=== PATIENT | male | born 1975 | race Caucasian/White ===

== ENCOUNTER 2019-11-02 13:20 | Inpatient (IN) ==
[2019-11-02 14:35] LABS: Hematocrit (blood only) 20.2 % (42-52); Hemoglobin 7.2 g/dL (14.0-18.0); Mean Corpuscular Hemoglobin 40.7 pg (25-34); Mean Corpuscular Hgb Conc 35.6 g/dL (32-36); Mean Corpuscular Volume 114.1 fL (80-100); Mean Platelet Volume 9.5 fL (7.4-10.4); Nucleated RBC # (auto) 0.09 K/uL (0-0); Nucleated RBC % (auto) 0.5 %; Platelet Count 185 K/uL (130-400); RDW Coefficient of Variation 15.8 % (11.5-14.5); RDW Standard Deviation 65.1 fL (36.4-46.3); Red Blood Count 1.77 M/uL (4.7-6.1); White Blood Count 19.66 K/uL (4.8-10.8)
[2019-11-02 14:42] LABS: Albumin Level 2.4 gm/dl (3.4-5.0); BUN Creatinine Ratio 25.2 (10-20); Calcium 8.4 mg/dl (8.5-10.1); Creatinine Clr Calc Pharmacy 251.7 ml/min; Est GFR (African American) 139.8; Est GFR (Non-African American) 120.7; Potassium 3.8 mmol/L (3.5-5.1)
[2019-11-02 14:45] LABS: Albumin Globulin Ratio 0.6 (0.9-2); Total Protein 6.4 gm/dl (6.4-8.2)
[2019-11-02 14:46] LABS: Basophilic Stippling 1+; Basophils # (auto) 0.04 K/uL (0-0.2); Basophils % (auto) 0.2 %; Eosinophils # (auto) 0.01 K/uL (0-0.5); Eosinophils % (auto) 0.1 %; Immature Granulocytes # (auto) 0.13 K/uL (0.00-0.02); Immature Granulocytes % (auto) 0.7 %; Lymphocytes # (auto) 1.86 K/uL (1.2-3.4); Lymphocytes % (auto) 9.5 %; Macrocytosis Present; Monocytes # (auto) 1.96 K/uL (0.11-0.59); Neutrophils # (auto) 15.66 K/uL (1.4-6.5); Neutrophils % (auto) 79.5 %; Polychromasia 1+
[2019-11-02] MEDS ORDERED: SODIUM CHLORIDE 0.9% 250 ML IV PRN ×2 (15:31→19:14)
[2019-11-02] MEDS ORDERED: PANTOprazole 80 MG in DEXTROSE 5% 100 ML IV STA (15:35)
--- NOTE | 2019-11-02 15:42 | Emergency Department Note ---
History of Present Illness General Chief complaint: Swelling/Edema to Extremity Stated complaint: LEGS SWOLLEN,BACK PAIN Time Seen by Provider: 11/02/19 15:13 Source: patient Mode of arrival: ambulatory Limitations: no limitations History of Present Illness Provider complaint: Shortness of breath Maximum Pain Intensity: 0 This is a 44-year-old male who presents to the ED with a chief complaint of swelling in the extremities for the past month. He has had increasing swelling in the body for the past week. He has had occasional gross blood in the stools. He has had exertional dyspnea where he can only walk about 10 steps before he has to rest. The patient does have a history of lifelong alcoholism. He states that he has been also spitting up occasionally or vomiting some yellowish-brown substance on occasion. The patient symptoms are moderate. The states that he looks a little yellow in the eyes recently as well. He denies any abdominal pains. He has experienced some back pain on occasion as well. He states that he does not have a doctor. He has not seen one for a long time. He denies any medical problems. Home Medications Home Medications Medication Instructions Recorded Confirmed Type No Known Home Medications 11/02/19 11/02/19 History Allergies Allergy/AdvReac Type Severity Reaction Status Date / Time No Known Allergies Allergy Unverified 11/02/19 16:13 Past Med/Surg History Social History Smoking Status: Never smoker Feels Safe at Home: Yes Review of Systems A total of 10 systems reviewed and were otherwise negative Physical Exam Vital Signs Vital Signs - 24 hr 11/02/19 13:52 Temperature 37.1 C Temperature Source Oral Pulse Rate 97 H Respiratory Rate 22 Respiratory Depth Normal Blood Pressure 104/49 L Blood Pressure Mean 67 Pulse Oximetry 98 Sepsis Recent Fever Within 48 Hours No Sepsis New/Unexplained Change in Mental Status No Sepsis Action Taken by Nursing No Action Required CONSTITUTIONAL/VITAL SIGNS: Reviewed / noted above. GENERAL: Non-toxic in appearance. Obese. INTEGUMENTARY: Warm, dry, and [place]. HEAD: Normocephalic. EYES: without scleral icterus or trauma. ENT/OROPHARYNX: clear and moist. LYMPHADENOPATHY/NECK: Is supple without lymphadenopathy or meningismus. RESPIRATORY: Lungs clear and equal. CARDIOVASCULAR: Regular rate and rhythm. GI/ABDOMEN: Soft and nontender. No organomegaly or pulsatile mass. No rebound or guarding. Normal bowel sounds. EXTREMITIES: Warm and well perfused. Positive edema. BACK: No CVA tenderness. NEUROLOGICAL: Intact without focal deficits. PSYCHIATRIC: normal affect. MUSCULOSKELETAL: Normally developed with good muscle tone. Rectal: Black stools guaiac positive. TRIAGE NURSING DOCUMENTATION REVIEWED. Critical Care Time Critical Care Time: Yes Total Critical Care Time: 40 I have personally spent 40 minutes of critical care time in the direct management of this patient. This includes bedside care, interpretation of diagnostic studies, and testing, discussion with consultants, patient, and family members, and other required patient management activities. This 40 minutes is in excess of all separately billable procedures. Medical Decision Making Differential Diagnosis Differential includes acute coronary syndrome, myocardial infarction, CVA, TIA, anemia, infection, pneumonia, UTI, pyelonephritis, poor nutrition, dehydration, electrolyte disturbance,hypoglycemia. Medical Records Attestation: I reviewed the patient's medical records. Home Medications Current Medication List: was personally reviewed by me Laboratory Data Attestation: I reviewed the patient's lab results. Result diagrams: 11/02/19 14:06 11/02/19 14:06 Lab Results 11/02/19 11/02/19 11/02/19 Range/Units 14:06 14:06 14:06 WBC 19.66 H (4.8-10.8) K/uL RBC 1.77 L (4.7-6.1) M/uL Hgb 7.2 L (14.0-18.0) g/dL Hct 20.2 L* (42-52) % MCV 114.1 H (80-100) fL MCH 40.7 H (25-34) pg MCHC 35.6 (32-36) g/dL RDW Std Deviation 65.1 H (36.4-46.3) fL RDW Coeff of Carlos Manuel 15.8 H (11.5-14.5) % Plt Count 185 (130-400) K/uL MPV 9.5 (7.4-10.4) fL Immature Gran % (Auto) 0.7 % Neut % (Auto) 79.5 % Lymph % (Auto) 9.5 % [place] % (Auto) 10.0 % Eos % (Auto) 0.1 % Baso % (Auto) 0.2 % Neut # (Auto) 15.66 H (1.4-6.5) K/uL Lymph # (Auto) 1.86 (1.2-3.4) K/uL [place] # (Auto) 1.96 H (0.11-0.59) K/uL Eos # (Auto) 0.01 (0-0.5) K/uL Baso # (Auto) 0.04 (0-0.2) K/uL Immature Gran # (Auto) 0.13 H (0.00-0.02) K/uL Absolute Nucleated RBC 0.09 H (0-0) K/uL Nucleated RBC % (auto) 0.5 % Polychromasia 1+ Basophilic Stippling 1+ Macrocytosis Present Sodium 125 L (136-145) mmol/L Potassium 3.8 (3.5-5.1) mmol/L Chloride 89 L (98-107) mmol/L Carbon Dioxide 22 (21-32) mmol/L Anion Gap 14.0 H (3-11) BUN 16 (7-18) mg/dl Creatinine 0.62 (0.6-1.4) mg/dl Est Cr Clr Drug Dosing 251.7 ml/min Est GFR ( Amer) 139.8 Est GFR (Non-Af Amer) 120.7 BUN/Creatinine Ratio 25.2 H (10-20) Glucose 150 H (70-99) mg/dl Calcium 8.4 L (8.5-10.1) mg/dl Total Bilirubin 2.0 H (0.2-1) mg/dl AST 92 H (15-37) U/L ALT 20 (12-78) U/L Alkaline Phosphatase 188 H (45-117) U/L Total Protein 6.4 (6.4-8.2) gm/dl Albumin 2.4 L (3.4-5.0) gm/dl Globulin 4.0 (2.5-4.0) gm/dl Albumin/Globulin Ratio 0.6 L (0.9-2) Lipase 211 (73-393) U/L Ethyl Alcohol mg/dL 72.9 H (0-3) mg/dl Crossmatch 11/02/19 Range/Units 15:31 WBC (4.8-10.8) K/uL RBC (4.7-6.1) M/uL Hgb (14.0-18.0) g/dL Hct (42-52) % MCV (80-100) fL MCH (25-34) pg MCHC (32-36) g/dL RDW Std Deviation (36.4-46.3) fL RDW Coeff of Carlos Manuel (11.5-14.5) % Plt Count (130-400) K/uL MPV (7.4-10.4) fL Immature Gran % (Auto) % Neut % (Auto) % Lymph % (Auto) % [place] % (Auto) % Eos % (Auto) % Baso % (Auto) % Neut # (Auto) (1.4-6.5) K/uL Lymph # (Auto) (1.2-3.4) K/uL [place] # (Auto) (0.11-0.59) K/uL Eos # (Auto) (0-0.5) K/uL Baso # (Auto) (0-0.2) K/uL Immature Gran # (Auto) (0.00-0.02) K/uL Absolute Nucleated RBC (0-0) K/uL Nucleated RBC % (auto) % Polychromasia Basophilic Stippling Macrocytosis Sodium (136-145) mmol/L Potassium (3.5-5.1) mmol/L Chloride (98-107) mmol/L Carbon Dioxide (21-32) mmol/L Anion Gap (3-11) BUN (7-18) mg/dl Creatinine (0.6-1.4) mg/dl Est Cr Clr Drug Dosing ml/min Est GFR ( Amer) Est GFR (Non-Af Amer) BUN/Creatinine Ratio (10-20) Glucose (70-99) mg/dl Calcium (8.5-10.1) mg/dl Total Bilirubin (0.2-1) mg/dl AST (15-37) U/L ALT (12-78) U/L Alkaline Phosphatase (45-117) U/L Total Protein (6.4-8.2) gm/dl Albumin (3.4-5.0) gm/dl Globulin (2.5-4.0) gm/dl Albumin/Globulin Ratio (0.9-2) Lipase (73-393) U/L Ethyl Alcohol mg/dL (0-3) mg/dl Crossmatch See Detail Imaging Data Radiologist's Impression: XR chest 1V portable HISTORY: Shortness of breath. Weakness. COMPARISON: None. FINDINGS: No pneumothorax. No pleural effusions. There are low lung volumes. The cardiac silhouette is mildly enlarged. This may be accentuated by the low lung volumes. No evidence for pulmonary edema. No focal lung consolidations to suggest pneumonia. IMPRESSION: Low lung volumes. Otherwise, no acute process within the chest. ECG Data Attestation: I personally reviewed and interpreted this ECG as follows: Indication: + weakness Rate (beats per minute): 96 Rhythm: + normal sinus ECG Intervals/blocks: + Normal QT-c ECG ST segments: no ST elevation ECG Findings: no PVCs MDM Narrative The patient presents as above with his main complaints being swelling in his body as well as blood in the stools and exertional dyspnea that is been progressively worsening over the past weeks. Significantly worse this past week where he can only walk 10 steps. His physical exam did reveal guaiac positive black stools. His white blood cell count was 19,000. His hemoglobin is 7.2. His sodium is 125. Glucose is 150. Bilirubin is 2. AST is 92. Alkaline phosphatase is 188. Alcohol level 73. The patient is a daily drinker/alco holic. His lipase was negative. EKG showed a normal sinus rhythm at a rate of 96. The patient was treated with IV fluids, IV Protonix bolus and drip as well as typed and crossed for 1 unit of blood. The patient will require further inpatient evaluation and care. I spoke with the hospitalist about the patient. Impression & Plan Acute upper gastrointestinal hemorrhage, Anemia, Acute hyponatremia, Alcoholism Discharge Plan Visit Data Chief Complaint: Swelling/Edema to Extremity Stated Complaint: LEGS SWOLLEN,BACK PAIN ED Provider: Anish Moss Discharge Problem: Acute upper gastrointestinal hemorrhage, Anemia, Acute hyponatremia, Alcoholism Patient Disposition: Being Evaluated by Hospitalist Forms Stand Alone Forms: My [facility] Prescriptions Prescriptions: No Action No Known Home Medications RF: 0 Referrals Referrals: PCP,NO [Primary Care Provider] -
--- NOTE | 2019-11-02 15:50 | XRay Report ---
XR chest 1V portable HISTORY: Shortness of breath. Weakness. COMPARISON: None. FINDINGS: No pneumothorax. No pleural effusions. There are low lung volumes. The cardiac silhouette i s mildly enlarged. This may be accentuated by the low lung volumes. No evidence for pulmonary edema. No focal lung consolidations to suggest pneumonia. IMPRESSION: Low lung volumes. Otherwise, no acute process within the chest. ACT 112: Negative or not required by law. Electronically signed by: Simón Polk M.D. 11/02/2019 3:49 PM
--- NOTE | 2019-11-02 16:08 | History & Physical Report ---
Date of Service November 02, 2019 Assessment & Plan (1) Dizziness: Suspect due to mod-severe anemia. Some of the anemia could be acute blood loss anemia from GI bleeding. I don't have prior CBCs to compare baseline H/H. Will Tx 1 unit PRBCs for symptomatic anemia and continue serial H/H's. (2) Alcoholism: Severe. I am heavily concerned he has full-blown cirrhosis given his lab findings, exam (LE edema, suspected ascites, palmar erythema, etc), etc. Place on thiamine 200mg IV BID. folic acid 1mg IV daily. gabapentin protocol and ativan prn. alcohol withdrawal protocol in place - at high risk of withdrawal. supportive care. telemetry. patient states he wishes to be sober and wants to talk to social work about options. abdominal u/s - check liver, spleen, ascites, etc. (3) Acute upper gastrointestinal hemorrhage: (4) Melena: concerning for upper GI bleeding. if indeed he has cirrhosis this could be variceal in origin. alternatively could have esophagitis, gastritis, and/or PUD. NPO. Transfuse PRBCs. serial H/H's. GI consult for consideration of EGD. PPI drip. Octreotide drip. fortunately BPs are stable. (5) Macrocytic anemia: Check B12, folate, TSH. If the above are normal the macrocytosis could simply be from heavy etoh use and/or liver disease. CBC am. (6) Acute hyponatremia: check serum osm, urine osm, urine Na. clinically is volume overloaded with severe LE edema and suspicion of ascites. following PRBCs will give IV lasix. repeat BMP am. (7) Abnormal LFTs: highly concerning for, at minimum, alcoholic hepatitis. cannot rule out baseline cirrhosis. abdominal u/s requested. check HepB and HepC tests. GI consultation requested with Dr Durant. needs to abstain 100% from etoh. (8) Morbid obesity: BMI 45 check TSH (9) Edema: suspect due to liver disease/cirrhosis. check TSH. check echo, r/o LV/RV dysfunction; r/o diastolic dysfunction. check u/a, r/o significant proteinuria. lasix IV following PRBCs. (10) Folate deficiency: folate level <1. folate 1mg IV daily. (11) Hyperglycemia: check A1c in am; r/o early DM. (12) Tobacco dependence: career guidance counselor to quit (13) Leukocytosis: has mild conjunctivitis on exam. cannot rule out a viral or bacterial infectious process. eye drops. check ua - r/o UTI. cxr w/o obvious pneumonia. alternatively high WBC could be reactive. lastly, if ascites is present on abdominal u/s -- consider diagnostic paracentesis -- r/o SBP (but no symptoms of such). (14) DVT prophylaxis: SCDs only chemical means contraindicated in setting of suspected acute GI bleeding History of Present Illness Chief Complaint: swelling, dyspnea Primary Care Provider: NO PCP 44yo male with morbid obesity and chronic alcohol abuse presents with multiple complaints including progressive dyspnea on exertion for 4-5 months, dizziness/lightheadedness with standing/walking, worsening LE edema and abdominal swelling, weight gain (uncertain amount but perhaps 40 pounds or more), melena stools for 2 weeks and some bright red blood, and back pain for about 1 year. Dyspnea on exertion was initially with walking long distances but now occurs after walking 10 steps. No chest pain. Tobacco use - snuff on daily basis. Alcohol use - 1/5 vodka/daily. Has used etoh since age 18. Has h/o etoh withdrawal but has never needed hospitalization for such. Last drink was just prior to arrival in the ER. Allergies Allergy/AdvReac Type Severity Reaction Status Date / Time No Known Allergies Allergy Unverified 11/02/19 16:13 Home Medications Home Medications Medication Instructions Recorded Confirmed Type No Known Home Medications 11/02/19 11/02/19 History Past Med/Surg History Family History (Updated 11/02/19 @ 16:24 by Micky Mondragon) Mother No pertinent past medical history Father No pertinent past medical history Grandfather (Paternal) Alcoholism Social History (Updated 11/02/19 @ 16:25 by Micky Mondragon) Smoking Status: Current every day smoker Tobacco Type: Smokeless Tobacco (Dip or Chew) Cigarettes Per Day: 2; Hx Alcohol Use: Yes Alcohol type: hard liquor Alcohol Intake Frequency: 4 or More x per/Week Alcohol Intake Frequency Comment: 1/5 vodka daily Hx Substance Use: No Preferred Language: Lithuanian Communication Ability: Effective It Solutions Architect Required: No Beliefs That Will Affect Care: None marital status: Current Living Situation: Alone current occupational status: employed current occupation: [employer] work How many Children do You have: 2 Other Information That Helps Us Care for You: No Feels Safe at Home: Yes Safety Concerns: Feels Safe At This Time Review of Systems Constitutional: + fatigue, + anorexia and + weight gain; no fever Eyes: + discharge; no worsening vision Ear, Nose, Mouth, Throat: no sore throat and no dysphagia no loss of taste or smell Respiratory: + cough (morning ) and + dyspnea on exertion Cardiovascular: + edema; no chest pain and no paroxysmal nocturnal dyspnea Gastrointestinal: + vomiting (most mornings ), + coffee ground emesis, + blood in stools and + melena; no abdominal pain and no constipation Genitourinary: no dysuria Musculoskeletal: + back pain; no radicular pain Integumentary: + rash (arms ) Neurologic: no localized weakness, no paralysis and no loss of sensation Psychiatric: + abnormal sleep pattern; no depression Endocrine: no diabetes to his knowledge Hematologic / Lymphatic: no easy bleeding and no easy bruising Physical Exam Constitutional: + morbidly obese and + frail appearing (looks older than stated age ); no acute distress and no altered mental status Eyes: + scleral abnormality (mild icterus ) and PERRL ENMT: external ear and nose normal, oropharynx normal Neck: trachea midline, no thyromegaly Respiratory: normal respiratory effort, lungs clear to auscultation Auscultation: + diminished lung sounds (bases) Cardiovascular: Rate/Rhythm: regular rate and regular rhythm Heart Sounds: normal S1 and normal S2; no murmur Vessels: posterior tibial pulses present and dorsalis pedis pulses present; no JVD Extremities: + edema (3+ to the thighs) Gastrointestinal (Abdomen): Inspection/Auscultation: + abdomen distended (with probable ascites) and normal bowel sounds Percussion/Palpation: + hepatosplenomegaly and + ascites (suspected); abdomen nontender and no guarding Musculoskeletal: no cyanosis or clubbing, extremities motor strength 5/5 Skin: + pallor palmar erythema b/l hands Neurologic: deep tendon reflexes 2+ bilaterally and moves all extremities; no focal motor deficits Motor/Sensory: no asterixis Psychiatric: Orientation: alert and oriented x 3 Affect: + depressed affect and + flat affect Lymphatic: no cervical lymphadenopathy Results & Data Results & Data ([facility]) Vital Signs (Past 12 Hours) Vital Signs Temp Pulse Resp BP Pulse Ox 11/02/19 13:52 37.1 C 97 H 22 104/49 L 98 Laboratory Results Laboratory Results - last 24 hr 11/02/19 11/02/19 11/02/19 14:06 14:06 14:06 WBC 19.66 H RBC 1.77 L Hgb 7.2 L Hct 20.2 L* MCV 114.1 H MCH 40.7 H MCHC 35.6 RDW Std Deviation 65.1 H RDW Coeff of Carlos Manuel 15.8 H Plt Count 185 MPV 9.5 Immature Gran % (Auto) 0.7 Neut % (Auto) 79.5 Lymph % (Auto) 9.5 [place] % (Auto) 10.0 Eos % (Auto) 0.1 Baso % (Auto) 0.2 Neut # (Auto) 15.66 H Lymph # (Auto) 1.86 [place] # (Auto) 1.96 H Eos # (Auto) 0.01 Baso # (Auto) 0.04 Immature Gran # (Auto) 0.13 H Absolute Nucleated RBC 0.09 H Nucleated RBC % (auto) 0.5 Polychromasia 1+ Basophilic Stippling 1+ Macrocytosis Present PT INR Sodium 125 L Potassium 3.8 Chloride 89 L Carbon Dioxide 22 Anion Gap 14.0 H BUN 16 Creatinine 0.62 Est Cr Clr Drug Dosing 251.7 Est GFR ( Amer) 139.8 Est GFR (Non-Af Amer) 120.7 BUN/Creatinine Ratio 25.2 H Glucose 150 H Osmolality Calcium 8.4 L Magnesium Iron Transferrin Transferrin % Sat Ferritin Total Bilirubin 2.0 H AST 92 H ALT 20 Alkaline Phosphatase 188 H Troponin I Total Protein 6.4 Albumin 2.4 L Globulin 4.0 Albumin/Globulin Ratio 0.6 L Lipase 211 Folate TSH Urine Color Urine Appearance Urine pH Ur Specific [place] Urine Protein Urine Glucose (UA) Urine Ketones Urine Blood Urine Nitrite Urine Bilirubin Urine Urobilinogen Ur Leukocyte Esterase Urine WBC (Auto) Urine RBC (Auto) U Hyaline Cast (Auto) U Epithel Cells (Auto) Urine Bacteria (Auto) Urine Osmolality Ur Random Sodium Ethyl Alcohol mg/dL 72.9 H Blood Type Blood Type Recheck Antibody Screen Crossmatch 11/02/19 11/02/19 11/02/19 14:14 14:14 15:31 WBC RBC Hgb Hct MCV MCH MCHC RDW Std Deviation RDW Coeff of Carlos Manuel Plt Count MPV Immature Gran % (Auto) Neut % (Auto) Lymph % (Auto) [place] % (Auto) Eos % (Auto) Baso % (Auto) Neut # (Auto) Lymph # (Auto) [place] # (Auto) Eos # (Auto) Baso # (Auto) Immature Gran # (Auto) Absolute Nucleated RBC Nucleated RBC % (auto) Polychromasia Basophilic Stippling Macrocytosis PT 13.8 H INR 1.3 H Sodium Potassium Chloride Carbon Dioxide Anion Gap BUN Creatinine Est Cr Clr Drug Dosing Est GFR ( Amer) Est GFR (Non-Af Amer) BUN/Creatinine Ratio Glucose Osmolality 284 Calcium Magnesium Iron Transferrin Transferrin % Sat Ferritin Total Bilirubin AST ALT Alkaline Phosphatase Troponin I Total Protein Albumin Globulin Albumin/Globulin Ratio Lipase Folate TSH Urine Color Urine Appearance Urine pH Ur Specific [place] Urine Protein Urine Glucose (UA) Urine Ketones Urine Blood Urine Nitrite Urine Bilirubin Urine Urobilinogen Ur Leukocyte Esterase Urine WBC (Auto) Urine RBC (Auto) U Hyaline Cast (Auto) U Epithel Cells (Auto) Urine Bacteria (Auto) Urine Osmolality Ur Random Sodium Ethyl Alcohol mg/dL Blood Type A Positive Blood Type Recheck Antibody Screen NEGATIVE Crossmatch See Detail 11/02/19 11/02/19 11/02/19 15:56 15:56 15:56 WBC RBC Hgb Hct MCV MCH MCHC RDW Std Deviation RDW Coeff of Carlos Manuel Plt Count MPV Immature Gran % (Auto) Neut % (Auto) Lymph % (Auto) [place] % (Auto) Eos % (Auto) Baso % (Auto) Neut # (Auto) Lymph # (Auto) [place] # (Auto) Eos # (Auto) Baso # (Auto) Immature Gran # (Auto) Absolute Nucleated RBC Nucleated RBC % (auto) Polychromasia Basophilic Stippling Macrocytosis PT INR Sodium Potassium Chloride Carbon Dioxide Anion Gap BUN Creatinine Est Cr Clr Drug Dosing Est GFR ( Amer) Est GFR (Non-Af Amer) BUN/Creatinine Ratio Glucose Osmolality Calcium Magnesium 1.9 Iron 189 H Transferrin 158 L Transferrin % Sat 85 H Ferritin 495.9 H Total Bilirubin AST ALT Alkaline Phosphatase Troponin I < 0.015 Total Protein Albumin Globulin Albumin/Globulin Ratio Lipase Folate TSH 2.660 Urine Color Urine Appearance Urine pH Ur Specific [place] Urine Protein Urine Glucose (UA) Urine Ketones Urine Blood Urine Nitrite Urine Bilirubin Urine Urobilinogen Ur Leukocyte Esterase Urine WBC (Auto) Urine RBC (Auto) U Hyaline Cast (Auto) U Epithel Cells (Auto) Urine Bacteria (Auto) Urine Osmolality Ur Random Sodium Ethyl Alcohol mg/dL Blood Type Blood Type Recheck A Positive Antibody Screen Crossmatch 11/02/19 11/02/19 11/02/19 19:24 21:42 22:15 WBC RBC Hgb 8.3 L Hct 24.7 L MCV MCH MCHC RDW Std Deviation RDW Coeff of Carlos Manuel Plt Count MPV Immature Gran % (Auto) Neut % (Auto) Lymph % (Auto) [place] % (Auto) Eos % (Auto) Baso % (Auto) Neut # (Auto) Lymph # (Auto) [place] # (Auto) Eos # (Auto) Baso # (Auto) Immature Gran # (Auto) Absolute Nucleated RBC Nucleated RBC % (auto) Polychromasia Basophilic Stippling Macrocytosis PT INR Sodium Potassium Chloride Carbon Dioxide Anion Gap BUN Creatinine Est Cr Clr Drug Dosing Est GFR ( Amer) Est GFR (Non-Af Amer) BUN/Creatinine Ratio Glucose Osmolality Calcium Magnesium Iron Transferrin Transferrin % Sat Ferritin Total Bilirubin AST ALT Alkaline Phosphatase Troponin I Total Protein Albumin Globulin Albumin/Globulin Ratio Lipase Folate 0.61 L TSH Urine Color Urine Appearance Urine pH Ur Specific [place] Urine Protein Urine Glucose (UA) Urine Ketones Urine Blood Urine Nitrite Urine Bilirubin Urine Urobilinogen Ur Leukocyte Esterase Urine WBC (Auto) Urine RBC (Auto) U Hyaline Cast (Auto) U Epithel Cells (Auto) Urine Bacteria (Auto) Urine Osmolality 743 Ur Random Sodium Ethyl Alcohol mg/dL Blood Type Blood Type Recheck Antibody Screen Crossmatch 11/02/19 11/02/19 22:15 22:15 WBC RBC Hgb Hct MCV MCH MCHC RDW Std Deviation RDW Coeff of Carlos Manuel Plt Count MPV Immature Gran % (Auto) Neut % (Auto) Lymph % (Auto) [place] % (Auto) Eos % (Auto) Baso % (Auto) Neut # (Auto) Lymph # (Auto) [place] # (Auto) Eos # (Auto) Baso # (Auto) Immature Gran # (Auto) Absolute Nucleated RBC Nucleated RBC % (auto) Polychromasia Basophilic Stippling Macrocytosis PT INR Sodium Potassium Chloride Carbon Dioxide Anion Gap BUN Creatinine Est Cr Clr Drug Dosing Est GFR ( Amer) Est GFR (Non-Af Amer) BUN/Creatinine Ratio Glucose Osmolality Calcium Magnesium Iron Transferrin Transferrin % Sat Ferritin Total Bilirubin AST ALT Alkaline Phosphatase Troponin I Total Protein Albumin Globulin Albumin/Globulin Ratio Lipase Folate TSH Urine Color Dark Yellow Urine Appearance Clear Urine pH 5.5 Ur Specific [place] 1.026 Urine Protein Negative Urine Glucose (UA) Negative Urine Ketones Trace H Urine Blood Negative Urine Nitrite Positive A Urine Bilirubin Negative Urine Urobilinogen Positive H Ur Leukocyte Esterase Trace H Urine WBC (Auto) 1-5 Urine RBC (Auto) 0-4 U Hyaline Cast (Auto) 1-5 U Epithel Cells (Auto) 10-20 H Urine Bacteria (Auto) Negative Urine Osmolality Ur Random Sodium 14 Ethyl Alcohol mg/dL Blood Type Blood Type Recheck Antibody Screen Crossmatch Diagnostic Findings cxr: IMPRESSION: Low lung volumes. Otherwise, no acute process within the chest. EKG - my reading: NSR, RSR' pattern III and AVF, prolonged QTc, no ST changes. Code Status & VTE Plan Code Status full VTE Prophylaxis Plan VTE Prophylaxis will be ordered: Yes Reason for no VTE drug order: Contraindicated PG Care Time/CCT Total # of Minutes Spent Total Time Spent with Patient: Total time spent is greater than 50% in coordination of care (as documented) at patient's floor/unit and/or counseling patient: Coding Level of Care Code 79606 Initial Inpt Care Lvl 3 Diagnoses Dizziness R42 Alcoholism F10.20 Acute upper gastrointestinal hemorrhage K92.2 Melena K92.1 Macrocytic anemia D53.9 Acute hyponatremia E87.1 Abnormal LFTs R94.5 Morbid obesity E66.01 Edema R60.9 Edema type: unspecified Folate deficiency E53.8 Hyperglycemia R73.9 Tobacco dependence F17.200 Leukocytosis D72.829 Leukocytosis type: unspecified DVT prophylaxis Z29.9 (1) Edema Edema type: unspecified Qualified Code(s): R60.9 - Edema, unspecified (2) Leukocytosis Leukocytosis type: unspecified Qualified Code(s): D72.829 - Elevated white blood cell count, unspecified
[2019-11-02] MEDS ORDERED: CEFEPIME 2,000 MG/20 ML VIAL IV STA (16:33)
[2019-11-02 16:36] LABS: Magnesium 1.9 mg/dl (1.8-2.4); Troponin I < 0.015 ng/ml (0-0.045)
[2019-11-02] MEDS ORDERED: OCTREOTIDE ACETATE 500 MCG in 0.9 % SODIUM CHLORIDE 100 ML IV SCH ×2 (16:45→23:00)
[2019-11-02 16:54] LABS: INR 1.3 (0.9-1.1); Prothrombin Time 13.8 Seconds (9.0-12.0)
[2019-11-02] MEDS: PANTOprazole 40 MG in DEXTROSE 5% 100 ML IV SCH ×2 (17:25→23:41)
[2019-11-02] MEDS ORDERED: CEFEPIME 2,000 MG/20 ML VIAL ONE (17:53)
[2019-11-02 18:15] LABS: Ferritin 495.9 ng/ml (8-388); Thyroid Stimulating Hormone 2.66 uIu/ml (0.300-4.500)
[2019-11-02] MEDS ORDERED: LORazepam 1 MG/2 ML VIAL IV PRN (19:14)
[2019-11-02] MEDS ORDERED: ONDANSETRON INJ 2 MG/ML 2 ML VIAL IV PRN (19:14)
[2019-11-02] MEDS ORDERED: FUROSEMIDE 40 MG/4 ML VIAL IV STA (19:14)
[2019-11-02] MEDS ORDERED: GABAPENTIN 1200MG ALCOHOL WITHDRAWAL LOAD PO STA (19:14)
[2019-11-02] MEDS ORDERED: LORazepam 1 MG TAB PO PRN (19:14)
[2019-11-02] MEDS ORDERED: GABAPENTIN 600 MG TAB PO ONE (20:00)
[2019-11-02] MEDS ORDERED: FUROSEMIDE 20 MG in SYRINGE 0 ML IV ONE (20:00)
[2019-11-02] MEDS ORDERED: FOLIC ACID 1 MG in SYRINGE 9.8 ML IV STA (21:05)
[2019-11-02] MEDS: FOLIC ACID 1 MG in SYRINGE 9.8 ML IV SCH (21:17)
[2019-11-02] MEDS: THIAMINE HCL 200 MG in SODIUM CHLORIDE 0.9% 50 ML IV SCH (21:17)
[2019-11-02 22:07] LABS: Hematocrit (blood only) 24.7 % (42-52); Hemoglobin 8.3 g/dL (14.0-18.0)
[2019-11-02 22:52] LABS: Appearance Urine Clear (Clear); Bacteria Urine Automated Negative (Negative); Blood Urine Negative (Negative); Color Urine Dark Yellow; Glucose Urine UA Negative (Negative); Ketones Urine Trace (Negative); Leukocyte Esterase Urine Trace (Negative); Nitrite Urine Positive (Negative); Protein Urine Negative (Negative); RBC Urine Automated 0-4 /hpf (0-4); Specific Gravity Urine 1.026 (1.000-1.030); Urobilinogen Urine Positive (Negative); pH Urine 5.5 (4.5-7.5)
[2019-11-02 22:59] LABS: Bilirubin Urine Negative (Negative); Ictotest Urine Negative (Negative)
[2019-11-03] MEDS: GABAPENTIN 600 MG TAB PO SCH ×4 (02:28→23:39)
[2019-11-03] MEDS ORDERED: OCTREOTIDE ACETATE 500 MCG in 0.9 % SODIUM CHLORIDE 100 ML IV SCH (04:15)
[2019-11-03] MEDS: PANTOprazole 40 MG in DEXTROSE 5% 100 ML IV SCH ×4 (04:21→21:15)
[2019-11-03 05:43] LABS: Hematocrit (blood only) 19.6 % (42-52); Hemoglobin 7.1 g/dL (14.0-18.0); Mean Corpuscular Hemoglobin 40.1 pg (25-34); Mean Corpuscular Hgb Conc 36.2 g/dL (32-36); Mean Corpuscular Volume 110.7 fL (80-100); Mean Platelet Volume 9.4 fL (7.4-10.4); Platelet Count 132 K/uL (130-400); RDW Coefficient of Variation 19.4 % (11.5-14.5); RDW Standard Deviation 77.8 fL (36.4-46.3); Red Blood Count 1.77 M/uL (4.7-6.1); White Blood Count 13.76 K/uL (4.8-10.8)
[2019-11-03 05:45] LABS: Anisocytosis Present; Basophils # (auto) 0.05 K/uL (0-0.2); Basophils % (auto) 0.4 %; Eosinophils # (auto) 0.04 K/uL (0-0.5); Eosinophils % (auto) 0.3 %; Immature Granulocytes # (auto) 0.08 K/uL (0.00-0.02); Immature Granulocytes % (auto) 0.6 %; Lymphocytes # (auto) 1.92 K/uL (1.2-3.4); Macrocytosis Present; Monocytes # (auto) 1.23 K/uL (0.11-0.59); Monocytes % (auto) 8.9 %; Neutrophils # (auto) 10.44 K/uL (1.4-6.5); Neutrophils % (auto) 75.8 %; Rouleaux 1+
[2019-11-03 05:49] LABS: Albumin Level 2.1 gm/dl (3.4-5.0); BUN Creatinine Ratio 29.2 (10-20); Calcium 7.2 mg/dl (8.5-10.1); Creatinine Clr Calc Pharmacy 236.1 ml/min; Est GFR (African American) 140.8; Est GFR (Non-African American) 121.5; Potassium 4.1 mmol/L (3.5-5.1)
[2019-11-03 05:51] LABS: Albumin Globulin Ratio 0.6 (0.9-2); Bilirubin,Total 2.4 mg/dl (0.2-1); Globulin 3.7 gm/dl (2.5-4.0); Total Protein 5.8 gm/dl (6.4-8.2)
--- NOTE | 2019-11-03 06:05 | Electrocardiogram Report ---
Test Reason : Blood Pressure : / mmHG Vent. Rate : 096 BPM Atrial Rate : 096 BPM P-R Int : 150 ms QRS Dur : 096 ms QT Int : 406 ms P-R-T Axes : 022 000 036 degrees QTc Int : 512 ms Normal sinus rhythm Prolonged QT Abnormal ECG No previous ECGs available Confirmed by Dann Brown ([id number]) on 11/03/2019 6:05:01 AM Referred By: SELF Confirmed By:Dann Brown
[2019-11-03 06:09] LABS: Estimated Average Glucose 82 mg/dl; Hemoglobin A1C 4.5 % (4.5-5.6)
[2019-11-03] MEDS ORDERED: SODIUM CHLORIDE 0.9% 250 ML IV PRN ×2 (06:30→08:43)
--- NOTE | 2019-11-03 06:32 | Communication Note ---
Date of Service: November 03, 2019 Critical H&H, hgb 7.1, hct crit 19.6%. Pt without active bleeding, no BM/melena overnight. Trending down from 8.3, 1 unit pRBC ordered for transfusion
--- NOTE | 2019-11-03 07:58 | Ultrasound Report ---
US abdomen complete CLINICAL HISTORY: Suspected cirrhosis. COMPARISON STUDY: No previous studies for comparison. FINDINGS: This exam is moderately compromised by suboptimal penetration. There is coarsening of hepat ic echotexture. There is possible trace perihepatic ascites. No hepatic lesions are identified althou gh sensitivity is significantly diminished on this exam. There is no biliary ductal dilatation. No ga llstones are noted. There is no gallbladder wall thickening. No sonographic Lopez sign was reported. Gallbladder is mildly distended. The pancreas is obscured. The abdominal aorta is also largely obscu red. There is no hydronephrosis. The right kidney measures 11 cm and the left measures 14 cm in maxim al dimension. Spleen is enlarged, measuring 16 cm in maximal dimension. IMPRESSION: 1. Exam compromised by suboptimal penetration. Coarsening of hepatic echotexture which raises the pos sibility of cirrhosis. 2. Mild gallbladder distention. No gallstones or gallbladder wall thickening. No sonographic Lopez s ign. 3. Largely obscured pancreas. 4. No hydronephrosis. ACT 112: Negative or not required by law. Electronically signed by: Ben Quigley M.D. 11/03/2019 7:57 AM
[2019-11-03 08:37] LABS: Hepatitis B Surface Antigen Neg (Neg)
--- NOTE | 2019-11-03 08:41 | Hospitalist Progress Note ---
Date of Service November 03, 2019 Assessment & Plan (1) Dizziness: Suspect due to mod-severe anemia. Coupled with alcohol withdrawal Some of the anemia could be acute blood loss anemia from GI bleeding. Patient did have appropriate rise in hemoglobin with repeat fall he was transfused an additional unit for a total of 2 units packed red blood cells. EGD was performed on 11/03/2019 with gastritis seen likely there was no signs of esophageal varices (2) Alcoholism: Last drink was approximately 24 hours ago.usually drinks vodka Placed on thiamine 200mg IV BID. folic acid 1mg IV daily. gabapentin protocol and ativan prn. alcohol withdrawal protocol in place - at high risk of withdrawal. patient states he wishes to be sober and wants to talk to social work about options. abdominal u/s -suboptimal exam due to abdominal girth direct comments made on liver parenchyma may need to repeat this once diuresis has occurred were consider CT scan. (3) Acute upper gastrointestinal hemorrhage: (4) Melena: Likely upper GI bleed likely from gastritis and esophagitis. No defined acute bleeding sources seen on EGD on 11/03/2019 Recheck hemoglobin in the evening of 02 November at 9 PM PPI drip. Continue as per gastroenterology recommendations Discontinue the octreotide drip (5) Macrocytic anemia: Check B12low normal, folatesignificantly low, TSHnormal. (6) Acute hyponatremia: Clinically improving continue diuresis (7) Abnormal LFTs: highly concerning for, at minimum, alcoholic hepatitis. check HepB pending and HepC negative tests. GI consultation Dr Durant. reinforced alcohol cessation (8) Morbid obesity: BMI 45 normal TSH (9) Edema: Patient with persistent peripheral edema echocardiogram is pending diuresis will continue, no proteinuria is noted on urine analysis (10) Folate deficiency: folate level <1. folate 1mg IV daily. (11) Hyperglycemia: hgb A 1 c is low at 4.5 excluding diabetes as diagnosis (12) Tobacco dependence: counseling director to quit offered nicotine patch and Nicorette gum (13) Leukocytosis: has mild conjunctivitis on exam. cannot rule out a viral or bacterial infectious process. Quinolone eye drops. check ua -negative such r/o UTI. cxr w/o obvious pneumonia. Clinical signs be concern for spontaneous bacterial peritonitis (14) DVT prophylaxis: SCDs only chemical means contraindicated in setting of suspected acute GI bleeding Admission and Anticipated Discharge Date Admission Date: November 02, 2019 Subjective Patient is slightly sedate he has no abdominal pain he complains of peripheral edema and distended abdomen his ex- and mother updated at the bedside Review of Systems Review of Systems: Mild distress and fatigue patient is slightly sedate no headache, blurry or double vision no speech or swallowing issues no chest pain, pressure or palpitations no shortness of breath, cough or wheezes no abdominal pain, no nausea or vomiting, planes of abdominal distention no dysuria, hematuria or frequency no focal joint pain significant distal lower extremity swelling no back pain, CVA tenderness or radicular pain no bruising, bleeding or rashes no focal signs of weakness or numbness or altered sensation no complaints or anxiety or depression. Physical Exam Physical Exam: The patient appeared well nourished and normally developed. He is morbidly obese with peripheral edema Vital signs as documented. Head exam is normocephalic atraumatic no scleral icterus Neck is without JVD, thyromegaly, or carotid bruits. Lungs are clear to auscultation, but diminished at the bases Cardiac exam, Rhythm is regular.. Sounds distant Abdominal exam reveals normal bowel sounds, tender dull to percussion Extremities are 2+ edematous and both legs are equally swollen no Homans sign no cords Neurologic exam is alert and oriented, he is sedate but has no focal loss of strength or sensation Skin is without bruises or rashes Results & Data Results & Data ([facility]) Vital Signs (Past 12 Hours) Vital Signs Temp Pulse Pulse Resp BP Pulse Ox 11/03/19 07:03 98.2 F 87 18 99/46 L 91 11/03/19 03:04 98.2 F 86 19 96/44 L 97 11/03/19 00:00 99 H 11/02/19 23:37 99.1 F 92 H 19 135/59 L 92 PG Care Time/CCT Total # of Minutes Spent Total Time Spent with Patient: Total time spent is greater than 50% in coordination of care (as documented) at patient's floor/unit and/or counseling patient: Coding Level of Care Code 65461 Subseq Hosp Care Lvl 3 Diagnoses Dizziness R42 Alcoholism F10.20 Acute upper gastrointestinal hemorrhage K92.2 Melena K92.1 Macrocytic anemia D53.9 Acute hyponatremia E87.1 Abnormal LFTs R94.5 Morbid obesity E66.01 Edema R60.9 Edema type: unspecified Folate deficiency E53.8 Hyperglycemia R73.9 Tobacco dependence F17.200 Leukocytosis D72.829 Leukocytosis type: unspecified DVT prophylaxis Z29.9 (1) Edema Edema type: unspecified Qualified Code(s): R60.9 - Edema, unspecified (2) Leukocytosis Leukocytosis type: unspecified Qualified Code(s): D72.829 - Elevated white blood cell count, unspecified
[2019-11-03] MEDS: FOLIC ACID 1 MG in SYRINGE 9.8 ML IV SCH (08:50)
[2019-11-03 09:06] LABS: Hepatitis C IgG 13Yrs+Old_Rflx Neg (Neg)
--- NOTE | 2019-11-03 09:34 | Gastrointestinal Consultation ---
Date of Consultation November 03, 2019 Assessment & Plan (1) Macrocytic anemia: -EGD today. Keep NPO. -Continue Protonix drip at present. -Patient is currently receiving a blood transfusion at the time of my visit. (2) Abnormal LFTs: -Continue to monitor -History of significant alcohol abuse and concern for possible early cirrhotic change noted on US: --Discussed alcohol abstinence; patient reportedly discussing rehab with social work. --Discussed importance of weight loss (10% total body weight loss over the next 1 year), low fat/low cholesterol diet. --Can address liver abnormalities as an outpatient. Thank you for allowing us to participate in the care of this patient. If you should have any further questions or concerns, do not hesitate to contact us at extension [phone] or [phone]. Supervising Physician Co-Signing Physician Notes Agree with FLAKO Brito Abd: Soft, Distended, +BS, No appreciable HSM Proceed with EGD today Continue current therapy and supportive care. History of Present Illness Reason for Consultation: Anemia, melena Attending Physician: Robbin Dillard MD History of Present Illness Patient is a 44 yo male with chronic alcohol abuse hospitalized after presenting for progressive JAIN & dizziness. He reports ongoing melena x 2 weeks. He denies abdominal pain. He denies hematemesis. He reports his family noticed that he appeared jaundiced several days ago. He acknowledges significant alcohol use. He drinks 1/5 of vodka and acknowledges alcohol use since age 18. Last drink was immediately prior to ED arrival. He has a history of smokeless tobacco use. He reports weight gain. He expresses interest in outpatient alcohol rehab. He is currently on a PPI drip. H/H 7.1/19.6. WBC 13,760. US indicated possible cirrhosis and distended gallbladder. T Bili 2.4, AST 79, ALT normal at 17. Alk phos 158. Allergies Allergy/AdvReac Type Severity Reaction Status Date / Time No Known Allergies Allergy Unverified 11/02/19 16:13 Home Medications Home Medications Medication Instructions Recorded Confirmed Type No Known Home Medications 11/02/19 11/02/19 History Patient History Medical History (Updated 11/03/19 @ 12:00 by Jose Guadalupe Mahmood MD) Acute upper gastrointestinal hemorrhage (Inactive) Alcoholism (Acute) Dizziness Edema Folate deficiency Melena Morbid obesity Tobacco dependence Surgical History No history of previous surgery Family History Mother No pertinent past medical history Father No pertinent past medical history Grandfather (Paternal) Alcoholism Social History (Updated 11/02/19 @ 16:25 by Micky Mondragon) Smoking Status: Current every day smoker Tobacco Type: Smokeless Tobacco (Dip or Chew) Cigarettes Per Day: 2; Hx Alcohol Use: Yes Alcohol type: hard liquor Alcohol Intake Frequency: 4 or More x per/Week Alcohol Intake Frequency Comment: 1/5 vodka daily Hx Substance Use: No Preferred Language: Chadian Communication Ability: Effective Public Health Training Assistant Required: No Beliefs That Will Affect Care: None marital status: Current Living Situation: Alone current occupational status: employed current occupation: [employer] How many Children do You have: 2 Other Information That Helps Us Care for You: No Feels Safe at Home: Yes Safety Concerns: Feels Safe At This Time Review of Systems Constitutional: no fever and no chills Eyes: no problem reported Respiratory: + dyspnea and + dyspnea on exertion; no cough Cardiovascular: no chest pain Gastrointestinal: + melena; no abdominal pain, no hematemesis and no change in bowel habits Musculoskeletal: + swelling Integumentary: no rash Neurologic: + dizziness Psychiatric: + substance abuse Endocrine: + fatigue Physical Exam Constitutional: WD/WN, vitals as above Eyes: PERRL, conjunctivae normal, anicteric sclerae ENMT: external ear and nose normal, oropharynx normal Neck: normal visual inspection Respiratory: normal respiratory effort, lungs clear to auscultation Cardiovascular: Rate/Rhythm: regular rate Gastrointestinal (Abdomen): Inspection/Auscultation: abdomen normal to inspection Percussion/Palpation: abdomen nontender and no ascites Skin: no rashes, warm and dry Neurologic: Speech / Cognition: normal speech Motor/Sensory: no tremor Psychiatric: A+Ox3, euthymic affect Results & Data ([facility]) Vital Signs (Past 12 Hours) Vital Signs Temp Pulse Pulse Resp BP BP Pulse Ox 11/03/19 09:23 36.8 C 84 20 109/67 95 11/03/19 07:03 36.8 C 87 18 99/46 L 91 11/03/19 03:04 36.8 C 86 19 96/44 L 97 11/03/19 00:00 99 H 11/02/19 23:37 37.3 C 92 H 19 135/59 L 92 PG Care Time/CCT Total # of Minutes Spent Total Time Spent with Patient: Total time spent is greater than 50% in coordination of care (as documented) at patient's floor/unit and/or counseling patient: Coding Level of Care Code 02674 Inpt Consult Level 4 Diagnoses Macrocytic anemia D53.9 Abnormal LFTs R94.5
--- NOTE | 2019-11-03 11:59 | Anesthesiology Consultation ---
Date of Service November 03, 2019 Assessment & Plan (1) Encounter for pre-operative examination: Chart Review Chart Review: Acceptable Risk for Surgery and Patient NOT seen in Pre Admission Testing Consults Requested none History Surgery Operation Date: 11/03/19 15:45 Proposed Procedures p Esophagogastroduodenoscopy Dr Bhargav Aponte Case, DO Height/Weight Height: 6 ft 3 in Weight: 143.3 kg Allergies Allergy/AdvReac Type Severity Reaction Status Date / Time No Known Allergies Allergy Unverified 11/02/19 16:13 Medications Home Medications Medication Instructions Recorded Confirmed Last Taken No Known Home Medications 11/02/19 11/02/19 Unknown Active Medications Generic Name Dose Route Start Last Admin Trade Name Freq PRN Reason Stop Dose Admin Pantoprazole Sodium 40 mg/ 100 mls @ 20 mls/hr 11/02/19 15:50 11/03/19 09:44 Dextrose IV 12/02/19 15:49 8 mg/hr Q5H RONAK 20 mls/hr Administration 8 MG/HR Folic Acid 1 mg/ Syringe 10 mls @ 5 mls/min 11/02/19 19:30 11/03/19 08:50 IV 12/02/19 19:29 5 mls/min QAM RONAK Administration Thiamine HCl 200 mg/ Sodium 52 mls @ 210 mls/hr 11/02/19 20:00 11/02/19 21:51 Chloride IV 12/02/19 19:59 Infused BID RONAK Infusion Octreotide Acetate 500 mcg/ 105 mls @ 5.25 mls/hr 11/03/19 04:15 11/03/19 04: 21 Sodium Chloride IV 11/04/19 00:14 25 mcg/hr .Q20H RONAK 5.3 mls/hr Administration 25 MCG/HR Past Medical History Medical History (Updated 11/03/19 @ 12:00 by Jose Guadalupe Mahmood MD) Acute upper gastrointestinal hemorrhage (Inactive) Alcoholism (Acute) Dizziness Edema Folate deficiency Melena Morbid obesity Tobacco dependence Exercise / Class Metabolic Activity II 4-5 Yardwork/Stairs/Walk up hill Past Family History Family History Mother No pertinent past medical history Father No pertinent past medical history Grandfather (Paternal) Alcoholism Past Surgical History Surgical History No history of previous surgery Past Anesthesia History No Hx of Anesthesia Complications and No Family Hx of Anesthesia Complications History of PONV No Hx of PONV and No Hx of Motion Sickness Social History Smoking Status: Current every day smoker tobacco type: cigarettes Smoking cigarettes per day: 2 Hx Alcohol Use: Yes Alcohol type: hard liquor alcohol intake frequency: 3 or more drinks per day Alcohol Intake Frequency Comment: 03/29 vodka Hx Substance Use: No Physical Exam Vital Signs Last Vital Signs Temp 36.9 C 11/03/19 11:26 Pulse 79 11/03/19 11:26 Resp 16 11/03/19 11:26 BP 107/66 11/03/19 11:26 Pulse Ox 95 11/03/19 11:26 Testing Laboratory Results 11/03/19 04:58 11/03/19 04:58 PT 13.8 Seconds (9.0-12.0) H 11/02/19 14:14 INR 1.3 (0.9-1.1) H 11/02/19 14:14 Hemoglobin A1c 4.5 % (4.5-5.6) 11/03/19 04:58 Urine Color Dark Yellow 11/02/19 22:15 Urine Appearance Clear (Clear) 11/02/19 22:15 Urine pH 5.5 (4.5-7.5) 11/02/19 22:15 Ur Specific [place] 1.026 (1.000-1.030) 11/02/19 22:15 Urine Protein Negative (Negative) 11/02/19 22:15 Urine Glucose (UA) Negative (Negative) 11/02/19 22:15 Urine Ketones Trace (Negative) H 11/02/19 22:15 Urine Nitrite Positive (Negative) A 11/02/19 22:15 Ur Leukocyte Esterase Trace (Negative) H 11/02/19 22:15 Urine WBC (Auto) 1-5 /hpf (0-5) 11/02/19 22:15 Urine RBC (Auto) 0-4 /hpf (0-4) 11/02/19 22:15 U Hyaline Cast (Auto) 1-5 /lpf (0-5) 11/02/19 22:15 U Epithel Cells (Auto) 10-20 /lpf (0-5) H 11/02/19 22:15 Urine Bacteria (Auto) Negative (Negative) 11/02/19 22:15 Blood Type A Positive 11/02/19 15:31 Antibody Screen NEGATIVE 11/02/19 15:31 Electrocardiogram Date: 11/02/19 Normal sinus rhythm Prolonged QT Abnormal ECG No previous ECGs available Confirmed by Dann Brown ([id number]) on 11/03/2019 6:05:01 AM
--- NOTE | 2019-11-03 12:54 | GI REPORT ---
Patient Name: Naren Torrez Procedure Date: 11/03/2019 12:43 PM Date of : 1975 Admit Type: Inpatient Age: 44 Gender: Male Attending MD: Jose Durant DO Procedure: Upper GI endoscopy Providers: Jose Durant DO Referring MD: Robbin Dillard Indications: Melena Medicines: Monitored Anesthesia Care Complications: No immediate complications. Estimated Blood Loss: Estimated blood loss: none. Procedure: Pre-Anesthesia Assessment: - Prior to the procedure, a History and Physical was performed, and patient medications and allergies were reviewed. The patient's tolerance of previous anesthesia was also reviewed. The risks and benefits of the procedure and the sedation options and risks were discussed with the patient. All questions were answered, and informed consent was obtained. Prior Anticoagulants: The patient has taken no previous anticoagulant or antiplatelet agents. ASA Grade Assessment: III - A patient with severe systemic disease. After reviewing the risks and benefits, the patient was deemed in satisfactory condition to undergo the procedure. After obtaining informed consent, the endoscope was passed under direct vision. Throughout the procedure, the patient's blood pressure, pulse, and oxygen saturations were monitored continuously. The Endoscope was introduced through the mouth, and advanced to the second part of duodenum. The upper GI endoscopy was accomplished without difficulty. The patient tolerated the procedure well. Findings: LA Grade B (one or more mucosal breaks greater than 5 mm, not extending between the tops of two mucosal folds) esophagitis with no bleeding was found 40 cm from the incisors. A small hiatal hernia was present. Localized moderate inflammation characterized by erosions and erythema was found in the gastric antrum. Biopsies were taken with a cold forceps for histology. The examined duodenum was normal. Impression: - LA Grade B reflux esophagitis. - Small hiatal hernia. - Gastritis. Biopsied. - Normal examined duodenum. Recommendation: - Return patient to [facility] for ongoing care. - Advance diet as tolerated to 2g sodium reduced diet. - Continue present medications, but stop Octreotide gtt. - Await pathology results. Jose Durant DO 11/03/2019 12:54:08 PM This report has been signed electronically. Note Initiated On: 11/03/2019 12:43 PM Number of Addenda: 0 I attest to the content of the Intraoperative Record and orders documented therein, exceptions below {[id number]}
[2019-11-03] MEDS ORDERED: PROPOFOL IV EMULSION 10 MG/ML 20 ML VIAL IV ONE (12:57)
[2019-11-03] MEDS ORDERED: LIDOCAINE HCL 2% 2 ML VIAL/AMP(20MG/ML) INFIL ONE (12:57)
--- NOTE | 2019-11-03 13:58 | Anesthesiology Progress Note ---
Date of Service November 03, 2019 Anesthesia Post Procedure Vital Signs Vital Signs: Temp Pulse Pulse Resp BP BP Pulse Ox 11/03/19 13:25 36.7 C 83 20 107/67 94 11/03/19 13:05 79 20 129/54 L 100 11/03/19 13:02 78 16 104/51 L 100 11/03/19 11:26 36.9 C 79 16 107/66 95 11/03/19 10:26 36.7 C 80 18 108/58 L 95 11/03/19 09:56 36.8 C 82 18 112/64 96 11/03/19 09:41 36.7 C 80 18 107/59 L 94 11/03/19 09:23 36.8 C 84 20 109/67 95 11/03/19 07:03 36.8 C 87 18 99/46 L 91 11/03/19 03:04 36.8 C 86 19 96/44 L 97 11/03/19 00:00 99 H 11/02/19 23:37 37.3 C 92 H 19 135/59 L 92 11/02/19 20:30 37 C 94 H 20 125/76 97 11/02/19 20:11 37.1 C 95 H 123/54 L 97 11/02/19 19:11 36.4 C L 92 H 18 129/67 97 11/02/19 18:50 37.3 C 95 H 18 124/64 100 11/02/19 18:26 36.8 C 93 H 20 114/55 L 98 11/02/19 18:10 36.7 C 94 H 16 123/60 99 Transfer of Care Handoff Completed per policy Notes Mental Status: alert / awake / arousable and participated in evaluation Patient Amnestic to Procedure: Yes Nausea / Vomiting: adequately controlled Pain: adequately controlled Airway Patency, RR, SpO2: stable & adequate BP & HR: stable & adequate Hydration State: stable & adequate Anesthetic Complications: no major complications apparent and Pt Satisfied with anesthetic care
[2019-11-03] MEDS: THIAMINE HCL 200 MG in SODIUM CHLORIDE 0.9% 50 ML IV SCH ×2 (15:19→21:57)
[2019-11-03] MEDS ORDERED: FUROSEMIDE 40 MG in SYRINGE 0 ML IV ONE (17:00)
[2019-11-03] MEDS: CIPROFLOXACIN HCL 0.3% OP SOLN 2.5 ML BTL OP SCH ×2 (17:18→22:15)
--- NOTE | 2019-11-03 18:33 | XCELERA ---
[id number]
[2019-11-04] MEDS: PANTOprazole 40 MG in DEXTROSE 5% 100 ML IV SCH ×3 (01:12→10:02)
[2019-11-04 06:13] LABS: Hematocrit (blood only) 22.2 % (42-52); Hemoglobin 7.6 g/dL (14.0-18.0); Mean Corpuscular Hemoglobin 36.7 pg (25-34); Mean Corpuscular Hgb Conc 34.2 g/dL (32-36); Mean Corpuscular Volume 107.2 fL (80-100); Mean Platelet Volume 9.6 fL (7.4-10.4); Platelet Count 144 K/uL (130-400); RDW Coefficient of Variation 22.1 % (11.5-14.5); RDW Standard Deviation 84.4 fL (36.4-46.3); Red Blood Count 2.07 M/uL (4.7-6.1); White Blood Count 10.39 K/uL (4.8-10.8)
[2019-11-04 06:48] LABS: BUN Creatinine Ratio 25.2 (10-20); Bilirubin Direct 1.3 mg/dl (0-0.2); Bilirubin,Total 1.8 mg/dl (0.2-1); Calcium 7.2 mg/dl (8.5-10.1); Creatinine Clr Calc Pharmacy 263.1 ml/min; Est GFR (African American) 140.8; Est GFR (Non-African American) 121.5; Potassium 3.8 mmol/L (3.5-5.1); Total Protein 5.5 gm/dl (6.4-8.2)
--- NOTE | 2019-11-04 07:18 | Hospitalist Progress Note ---
Date of Service November 04, 2019 Assessment & Plan (1) Dizziness: Suspect due to mod-severe anemia. Coupled with alcohol withdrawal Some of the anemia could be acute blood loss anemia from GI bleeding also bone marrow supression from alcohol. Patient did have appropriate rise in hemoglobin with repeat fall he was transfused an additional unit for a total of 2 units packed red blood cells. EGD was performed on 11/03/2019 with gastritis seen likely there was no signs of esophageal varices u/s cannot get clear picture of liver, will have GI medicine re image as outpt (2) Alcoholism: Last drink was approximately 24 hours prior to admission he usually drinks vodka Placed on thiamine 200mg IV BID. folic acid 1mg IV daily. gabapentin protocol and ativan prn. alcohol withdrawal protocol in place - doing well on gabapentin patient states he wishes to be sober and wants to talk to social work about options. abdominal u/s -suboptimal exam due to abdominal girth direct comments made on liver parenchyma may need to repeat this once diuresis has occurred were consider CT scan. (3) Melena: Likely upper GI bleed likely from gastritis and esophagitis. No defined acute bleeding sources seen on EGD on 11/03/2019 hgb hovering around 8 gms Pt having no significant symptoms PPI drip-change to bid dosing Continue as per gastroenterology recommendations (4) Macrocytic anemia: Check B12low normal, folatesignificantly low, TSHnormal. (5) Acute hyponatremia: Clinically improving continue diuresis (6) Abnormal LFTs: concerning for alcoholic hepatitis imnproving as he moves away from alcohol use. HepB pending and HepC negative tests. reinforced alcohol cessation (7) Morbid obesity: BMI 45 normal TSH (8) Edema: Patient with persistent peripheral edema echocardiogram without HF, also no proteinuria on ua (9) Folate deficiency: folate level <1. folate 1mg IV daily. (10) Hyperglycemia: hgb A 1 c is low at 4.5 excluding diabetes as diagnosis (11) Tobacco dependence: school counsellor to quit offered nicotine patch and Nicorette gum (12) Leukocytosis: has mild conjunctivitis on exam. cannot rule out a viral or bacterial infectious process. Quinolone eye drops. check ua -negative such r/o UTI. cxr w/o obvious pneumonia. Clinical signs be concern for spontaneous bacterial peritonitis (13) DVT prophylaxis: SCDs only chemical means contraindicated in setting of suspected acute GI bleeding Admission and Anticipated Discharge Date Admission Date: November 02, 2019 Subjective Patient remains slightly sedate he has no abdominal pain he continues to complain of peripheral edema and distended abdomen. His ex- and mother updated at the bedside 11/04/19 Review of Systems Review of Systems: Mild distress and fatigue patient is slightly sedate no headache, blurry or double vision no speech or swallowing issues no chest pain, pressure or palpitations no shortness of breath, cough or wheezes no abdominal pain, no nausea or vomiting, planes of abdominal distention no dysuria, hematuria or frequency no focal joint pain significant distal lower extremity swelling no back pain, CVA tenderness or radicular pain no bruising, bleeding or rashes no focal signs of weakness or numbness or altered sensation no complaints or anxiety or depression. Eyes: + discharge; no worsening vision Physical Exam Physical Exam: The patient appeared well nourished and normally developed. He is morbidly obese with peripheral edema Vital signs as documented. Head exam is normocephalic atraumatic no scleral icterus Neck is without JVD, thyromegaly, or carotid bruits. Lungs are clear to auscultation, but diminished at the bases Cardiac exam, Rhythm is regular.. Sounds distant Abdominal exam reveals normal bowel sounds, tender dull to percussion Extremities are 2+ edematous and both legs are equally swollen no Homans sign no cords Neurologic exam is alert and oriented, he is sedate but has no focal loss of strength or sensation Skin is without bruises or rashes Results & Data Results & Data ([facility]) Vital Signs (Past 12 Hours) Vital Signs Temp Pulse Pulse Resp BP Pulse Ox 11/04/19 07:11 98.6 F 83 17 97/49 L 93 11/04/19 04:49 98.6 F 86 19 98/56 L 93 11/04/19 00:41 83 11/03/19 23:08 98.8 F 85 18 106/62 96 11/03/19 19:32 99.0 F 83 17 106/70 94 PG Care Time/CCT Total # of Minutes Spent Total Time Spent with Patient: Total time spent is greater than 50% in coordination of care (as documented) at patient's floor/unit and/or counseling patient: Coding Level of Care Code 79670 Subseq Hosp Care Lvl 3 Diagnoses Dizziness R42 Alcoholism F10.20 Melena K92.1 Macrocytic anemia D53.9 Acute hyponatremia E87.1 Abnormal LFTs R94.5 Morbid obesity E66.01 Edema R60.9 Edema type: unspecified Folate deficiency E53.8 Hyperglycemia R73.9 Tobacco dependence F17.200 Leukocytosis D72.829 Leukocytosis type: unspecified DVT prophylaxis Z29.9 (1) Edema Edema type: unspecified Qualified Code(s): R60.9 - Edema, unspecified (2) Leukocytosis Leukocytosis type: unspecified Qualified Code(s): D72.829 - Elevated white blood cell count, unspecified
[2019-11-04] MEDS: GABAPENTIN 600 MG TAB PO SCH ×2 (07:56→21:48)
[2019-11-04] MEDS: CIPROFLOXACIN HCL 0.3% OP SOLN 2.5 ML BTL OP SCH ×2 (09:59→21:48)
[2019-11-04] MEDS: FOLIC ACID 1 MG in SYRINGE 9.8 ML IV SCH (09:59)
[2019-11-04] MEDS: THIAMINE HCL 200 MG in SODIUM CHLORIDE 0.9% 50 ML IV SCH ×2 (10:03→21:49)
--- NOTE | 2019-11-04 11:37 | Gastroenterology Progress Note ---
Date of Service November 04, 2019 Assessment & Plan (1) Macrocytic anemia: -Await results from repeat H/H -No signs of active bleeding at present -Continue PPI, but convert to 40 mg BID. (2) Abnormal LFTs: History of significant alcohol abuse and concern for possible early cirrhotic change noted on US: -Discussed alcohol abstinence; patient reportedly discussing rehab with social work. -Discussed importance of weight loss (10% total body weight loss over the next 1 year), low fat/low cholesterol diet. -Will need eventual CT of the liver for better characterization (If not done inpatient, can do as outpatient). -Continue to monitor LFTs Thank you for allowing us to participate in the care of this patient. If you should have any further questions or concerns, do not hesitate to contact us at extension [phone] or [phone]. Admission and Anticipated Discharge Date Admission Date: November 02, 2019 Supervising Physician Co-Signing Physician Notes Agree with FLAKO Brito Abd: Soft, NT, Distended, No appreciable HSM Again discussed importance of abstinence from all alcohol Will check Hep A and B serologies as outpt and if no immunity will vaccinate to avoid secondary liver insult Continue supportive care Subjective Patient is a 44 yo male with macrocytic anemia, alcohol abuse, & melena. He underwent an EGD on 11/02 that did not indicate any acute/active bleeding. His H/H has been labile during admission and he has a lab study pending at 11 am. He denies physical complaints at the time of my visit. T bili 1.8, D Bili 1.3, AST 90, ALT 17, INR 1.3, Alk phos 139. US was poor however concerning for cirrhosis. Review of Systems Respiratory: + dyspnea and + dyspnea on exertion; no cough Gastrointestinal: + melena; no abdominal pain, no hematemesis and no change in bowel habits Psychiatric: + substance abuse Physical Exam Constitutional: WD/WN, vitals as above Respiratory: normal respiratory effort, lungs clear to auscultation Gastrointestinal (Abdomen): Inspection/Auscultation: abdomen normal to inspection Percussion/Palpation: abdomen nontender and no ascites Psychiatric: A+Ox3, euthymic affect Results & Data Results & Data ([facility]) Vital Signs (Past 12 Hours) Vital Signs Temp Pulse Pulse Resp BP Pulse Ox 11/04/19 11:19 36.9 C 82 18 111/65 97 11/04/19 09:21 83 11/04/19 07:11 37.0 C 83 17 97/49 L 93 11/04/19 04:49 37.0 C 86 19 98/56 L 93 11/04/19 00:41 83 PG Care Time/CCT Total # of Minutes Spent Total Time Spent with Patient: Total time spent is greater than 50% in coordination of care (as documented) at patient's floor/unit and/or counseling patient: Coding Level of Care Code 07747 Subseq Hosp Care Lvl 2 Diagnoses Macrocytic anemia D53.9 Abnormal LFTs R94.5
[2019-11-04] MEDS ORDERED: FUROSEMIDE 40 MG in SYRINGE 0 ML IV ONE (15:00)
[2019-11-04] MEDS: PANTOprazole 40 MG in SYRINGE 0 ML IV SCH (21:47)
[2019-11-05 06:50] LABS: Hematocrit (blood only) 22.9 % (42-52); Hemoglobin 7.6 g/dL (14.0-18.0); Mean Corpuscular Hemoglobin 36.2 pg (25-34); Mean Corpuscular Hgb Conc 33.2 g/dL (32-36); Mean Platelet Volume 9.4 fL (7.4-10.4); Nucleated RBC # (auto) 0.07 K/uL (0-0); Nucleated RBC % (auto) 0.7 %; Platelet Count 154 K/uL (130-400); RDW Coefficient of Variation 22.2 % (11.5-14.5); RDW Standard Deviation 87.2 fL (36.4-46.3); White Blood Count 9.56 K/uL (4.8-10.8)
[2019-11-05 07:21] LABS: BUN Creatinine Ratio 20.2 (10-20); Calcium 7.5 mg/dl (8.5-10.1); Creatinine Clr Calc Pharmacy 252.9 ml/min; Est GFR (African American) 138.9; Est GFR (Non-African American) 119.9; Potassium 3.7 mmol/L (3.5-5.1)
[2019-11-05] MEDS ORDERED: FUROSEMIDE 40 MG TAB PO SCH (09:00)
[2019-11-05] MEDS: FOLIC ACID 1 MG in SYRINGE 9.8 ML IV SCH (09:05)
[2019-11-05] MEDS: PANTOprazole 40 MG in SYRINGE 0 ML IV SCH (09:05)
[2019-11-05] MEDS: CIPROFLOXACIN HCL 0.3% OP SOLN 2.5 ML BTL OP SCH (09:05)
[2019-11-05] MEDS: GABAPENTIN 600 MG TAB PO SCH (09:06)
[2019-11-05] MEDS: THIAMINE HCL 200 MG in SODIUM CHLORIDE 0.9% 50 ML IV SCH ×2 (09:59→10:32)
--- NOTE | 2019-11-05 18:20 | Discharge Summary ---
Date of Service November 05, 2019 Admission HPI Per Admitting Provider 44yo male with morbid obesity and chronic alcohol abuse presents with multiple complaints including progressive dyspnea on exertion for 4-5 months, dizziness/lightheadedness with standing/walking, worsening LE edema and abdominal swelling, weight gain (uncertain amount but perhaps 40 pounds or more), melena stools for 2 weeks and some bright red blood, and back pain for about 1 year. Dyspnea on exertion was initially with walking long distances but now occurs after walking 10 steps. No chest pain. Tobacco use - snuff on daily basis. Alcohol use - 1/5 vodka/daily. Has used etoh since age 18. Has h/o etoh withdrawal but has never needed hospitalization for such. Last drink was just prior to arrival in the ER. Principal Diagnosis Alcoholic hepatitis Alcohol withdrawal Discharge Exam The patient appeared well Vital signs as documented. Lungs are clear to auscultation and appear unlabored Cardiac exam, Rhythm is regular.. No murmurs, rubs or gallops. Abdominal exam reveals normal bowel sounds, soft non tender, no masses Extremities are with 2+ bilateral pretibial edema Neurologic exam is alert and oriented, no focal loss of strength or sensation Skin is without bruises or rashes Psychologically is with concerns for depression associate with alcohol dependency Discharge Data Allergies Allergy/AdvReac Type Severity Reaction Status Date / Time No Known Allergies Allergy Unverified 11/02/19 16:13 Consultations 11/02/19 15:44 ED Decision to Admit Stat 11/02/19 19:14 Consult Case Management - Discharge Planning Routine Consult Gastroenterology Routine Procedures Performed Operation Date: 11/03/19 15:45 Actual Procedures p EGD Biopsy Cytology - Jose Aponte Case, DO Ordered Studies 11/02/19 17:02 US abdomen complete Urgent Hospital Course (1) Dizziness: Resolved no dizziness despite hemoglobin in the seven 8 g range Some of the anemia could be acute blood loss anemia from GI bleeding also bone marrow suppression from alcohol. Patient did have a total of 2 units packed red blood cells. EGD was performed on 11/03/2019 with gastritis seen likely there was no signs of esophageal varices u/s cannot get clear picture of liver, will have GI medicine re image as outpt (2) Alcoholism: Last drink was approximately 24 hours prior to admission he usually drinks vodka gabapentin dosing with taper as an outpatient patient states he wishes to be sober and explore outpatient options to treat his alcoholism. He will follow-up with primary care to the [facility] by his choice abdominal u/s -suboptimal exam due to abdominal girth direct comments made on liver parenchyma may need to repeat this once diuresis has occurred were consider CT scan. (3) Melena: Patient was discharged on outpatient PPI no overt bleeding source was seen although gastritis could likely be his source (4) Macrocytic anemia: Check B12low normal, folatesignificantly low, TSHnormal. Recommend on the multiple vitamins an outpatient with iron (5) Acute hyponatremia: Resolved (6) Abnormal LFTs: concerning for alcoholic hepatitis imnproving as he moves away from alcohol use. HepB pending and HepC negative tests. reinforced alcohol cessation (7) Morbid obesity: BMI 45 normal TSH (8) Edema: Patient with persistent peripheral edema echocardiogram without HF, also no proteinuria on ua Patient be discharged on Lasix and compressive stockings likely with this will be discontinued in the future once his nutritional status improves primary care doctor will hopefully follow-up with us (9) Folate deficiency: folate level <1. 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 cannot rule out a viral or bacterial infectious process. Quinolone eye drops for 3 days with great improvement. check ua -negative such r/o UTI. cxr w/o obvious pneumonia. Total Time Total Time Spent Total Time Spent (In Minutes): It required greater than 30 minutes to prepare this patient for discharge Discharge Plan Discharge Items Patient Disposition: Home - Self-Care Reason For Visit: SYMPTOMATIC AMENIA, HYPONATREMIA, Discharge Diagnosis: alcoholic hepatitis alcohol withdrawal Activity: Resume your previous activity Non-emergency contact: Primary Care Provider and Vessel Scrapper Helper Call non-emergency contact if: you have any medication questions and your symptoms worsen Follow-up/Referrals: Luis M Goss DO [Primary Care Provider] - 11/09/19 11:20 am (A hospital follow up/new PCP appt. has been made for you with Dr. Goss at [facility] at your request. This appt. is for at 11:20am. You had requested an appt. with Dr. Ogden but he did not have any appt. available until 11/16. They asked that you request your next appt. with him if you desire.) PCP,NO [Physician] - Diet: Low Sodium (2gm) Addtl Attending Provider Instructions: please abstain from alcohol of any kind strongly consider AA low salt diet wear compression stockings and take diuretic until instructed otherwise by primary care take a multiple vitamin with iron Pending Studies at Discharge: No Stand-Alone Forms: My [facility], Smoking Cessation Medications and DC Order Prescriptions: New furosemide 40 mg Tablet 40 mg PO QAM Qty: 30 RF: 0 pantoprazole [Protonix] 40 mg tablet,delayed release (DR/EC) 40 mg PO BID 42 Days Qty: 84 RF: 0 gabapentin 100 mg capsule 100 mg PO UD Qty: 26 RF: 0 No Action No Known Home Medications RF: 0 Discharge Orders: Discharge Order (Routine); Ordered 11/05/19 Ordered By: Robbin Gonsales/Other Patient Handouts: Alcoholism: Myths and Facts, Alcoholism How to be Part of the Solution, Alcoholism Resources, Diet Low Salt Dc Admission Data Admit Date/Time: 11/02/19 17:08 Attending Provider: Robbin Dillard Admit Provider: Micky Mondragon Primary Care Provider: Luis M Goss Other Providers: Micky Mondragon ; Jose Durant Other Interventions: Discharge Summary Assessment (RN) Last Done: 11/05/19 13:55 Coding Level of Care Code D/C Day Management >30 mins Diagnoses Dizziness R42 Alcoholism F10.20 Melena K92.1 Macrocytic anemia D53.9 Acute hyponatremia E87.1 Abnormal LFTs R94.5 Morbid obesity E66.01 Edema R60.9 Edema type: unspecified Folate deficiency E53.8 Hyperglycemia R73.9 Tobacco dependence F17.200 Leukocytosis D72.829 Leukocytosis type: unspecified
[2019-11-06] MEDS ORDERED: GABAPENTIN 600 MG TAB PO SCH (08:00)
== END 2019-11-05 14:25 | disposition home or self-care (01) | DRG 378 ==
LOC: ED 13:20 → SUATTDRO 17:08 → 2E 17:08